=== PATIENT | female | born 1970 | race Caucasian/White ===

== ENCOUNTER 2021-01-23 12:03 | Emergency (ER) | payer BC, OTHER ==
[2021-01-23 12:08] VITALS: BP 137/90; PULSE 81; TEMP 98; BMI 33.2
[2021-01-23] MEDS ORDERED: METHOCARBAMOL 500 MG TABLET PO ONE (12:46)
[2021-01-23] MEDS ORDERED: KETOROLAC TROMETHAMINE 60 MG/2 ML VIAL IM ONE (12:46)
[2021-01-23] MEDS ORDERED: METHOCARBAMOL 500 MG TABLET ONE (13:25)
[2021-01-23] MEDS ORDERED: KETOROLAC TROMETHAMINE 60 MG/2 ML VIAL ONE (13:26)
== END 2021-01-23 14:36 | disposition home or self-care (01) ==
LOC: FER 12:03
PROC: 3E023GC Introduction of Other Therapeutic Substance into Muscle, Percutaneous Approach (ICD-10-PCS; principal; 2021-01-23)
DX: M54.5 Low back pain (principal)
CPT/HCPCS: 81025; 99284-25